=== PATIENT | male | born 1985 | race Caucasian/White ===

== ENCOUNTER 2019-07-12 19:58 | Emergency (ER) | payer SELFPAY ==
[2019-07-12 20:06] VITALS: BMI 28.2
--- NOTE | 2019-07-12 20:31 | PDOC ---
History of Present Illness - General Chief Complaint: Pain Stated Complaint: ABDOMINAL PAIN Time Seen by Provider: 07/12/19 20:31 Past History - Past Medical History Allergies/Adverse Reactions: Allergies Allergy/AdvReac Type Severity Reaction Status Date / Time No Known Allergies Allergy Verified 07/14/19 16:53 Home Medications: Ambulatory Orders Acetaminophen [Tylenol -] 500 mg PO Q4H #100 tablet 07/13/19 Ibuprofen [Motrin -] 600 mg PO TID #21 tablet 07/13/19 - Psycho Social/Smoking Cessation Hx Smoking History: Never smoked Hx Alcohol Use: Yes (social) Drug/Substance Use Hx: No *Physical Exam - Vital Signs Last Vital Signs Temp Pulse Resp BP Pulse Ox 99 F 93 H 18 127/85 100 07/12/19 20:04 07/12/19 20:04 07/12/19 20:04 07/12/19 20:04 07/12/19 20:04 ED Treatment Course - LABORATORY CBC & Chemistry Diagram: 07/12/19 21:35 07/12/19 21:35 Medical Decision Making - Medical Decision Making HPI: 34yo M with PMH of HLD, gastritis, and h. pylori presenting with epigastric abdominal pain x 1 week. Patient states the pain feels "like a ball" and is rated 9/10. He has had nausea, bilious vomiting, and has not been able to tolerate po. Had about five episodes of diarrhea today without Has never had surgery. Denies urinary symptoms. Was evaluated on Monday at [facility] for similar issue, was given ranitidine which has not provided relief of his pain. Was referred to GI and has an appointment on Monday. Has had an endoscopy more than a year ago which showed gastritis. Denies tobacco smoking, alcohol drinking , or recreational drug use. Denies recent travel or sick contacts. No fevers or chills. PCP: none GI: none ROS: Constitutional: no fever, no chills HEENT: no throat pain, no dysphagia Cardiovascular: no chest pain, no palpitations Respiratory: no cough, no shortness of breath Gastrointestinal: +abdominal pain, +vomiting Genitourinary: no dysuria, no hematuria Musculoskeletal: no myalgia, no arthralgia Skin: no rash, no itching Neurologic: no headache, no weakness PE: General: Awake, alert, and fully oriented, in no acute distress Head: No signs of trauma Eyes: EOMI, sclera anicteric ENT: Moist mucus membranes Neck: Normal ROM, supple Lungs: Lungs clear, Normal breath sounds Cardio: Regular rhythm, S1 and S2 present Abdomen: Tender to palpation in epigastrium. Soft, nondistended. No guarding, no rebound, no masses. No CVA tenderness. Extremities: Normal range of motion, Distal pulses present SKIN: Warm, Dry, normal turgor Neurologic: Cranial nerves II through XII grossly intact. Normal speech ED Course/MDM: DDX including but not limited to pancreatitis, gastritis, GERD, h. pylori, gastric ulcer, nephrolithiasis Labs, EKG, CXR 07/12/19 20:31 Patient states he feels better after receiving medications, now 01/23. No longer nauseous CBC WBC 4.5 K/mm3 (4.0-10.0) 07/12/19 21:35 RBC 5.27 M/mm3 (4.00-5.60) 07/12/19 21:35 Hgb 15.1 GM/dL (11.7-16.9) 07/12/19 21:35 Hct 45.1 % (35.4-49) 07/12/19 21:35 MCV 85.7 fl (80-96) 07/12/19 21:35 MCH 28.7 pg (25.7-33.7) 07/12/19 21:35 MCHC 33.4 g/dl (32.0-35.9) 07/12/19 21:35 RDW 13.9 % (11.9-15.9) 07/12/19 21:35 Plt Count 261 K/MM3 (134-434) 07/12/19 21:35 MPV 8.0 fl (7.5-11.1) 07/12/19 21:35 Absolute Neuts (auto) 2.1 K/mm3 (1.5-8.0) 07/12/19 21:35 Neutrophils % 47.3 % (42.8-82.8) 07/12/19 21:35 Neutrophils % (Manual) 30.3 % (42.8-82.8) L 07/12/19 21:35 Band Neutrophils % 8.1 % 07/12/19 21:35 Lymphocytes % 26.6 % (8-40) 07/12/19 21:35 Lymphocytes % (Manual) 29.3 % (8-40) 07/12/19 21:35 Monocytes % 24.2 % (3.8-10.2) H 07/12/19 21:35 Monocytes % (Manual) 17 % (3.8-10.2) H 07/12/19 21:35 Eosinophils % 1.6 % (0-4.5) 07/12/19 21:35 Eosinophils % (Manual) 10.1 % (0-4.5) H 07/12/19 21:35 Basophils % 0.3 % (0-2.0) 07/12/19 21:35 Basophils % (Manual) 0.0 % (0-2.0) 07/12/19 21:35 Myelocytes % (Man) 0 % (0-2) 07/12/19 21:35 Promyelocytes % (Man) 0 % (0-2) 07/12/19 21:35 Blast Cells % (Manual) 0 % (0-0) 07/12/19 21:35 Nucleated RBC % 0 % (0-0) 07/12/19 21:35 Metamyelocytes 0 % (0-2) 07/12/19 21:35 Hypochromia 0 07/12/19 21:35 Platelet Estimate Normal 07/12/19 21:35 Polychromasia 0 07/12/19 21:35 Poikilocytosis 0 07/12/19 21:35 Anisocytosis 0 07/12/19 21:35 Microcytosis 0 07/12/19 21:35 Macrocytosis 0 07/12/19 21:35 No leukocytosis CMP Sodium 139 mmol/L (136-145) 07/12/19 21:35 Potassium 4.2 mmol/L (3.5-5.1) 07/12/19 21:35 Chloride 103 mmol/L (98-107) 07/12/19 21:35 Carbon Dioxide 30 mmol/L (21-32) 07/12/19 21:35 Anion Gap 5 MMOL/L (8-16) L 07/12/19 21:35 BUN 12.1 mg/dL (7-18) 07/12/19 21:35 Creatinine 1.1 mg/dL (0.55-1.3) 07/12/19 21:35 Est GFR (CKD-EPI)AfAm 102.40 07/12/19 21:35 Est GFR (CKD-EPI)NonAf 88.36 07/12/19 21:35 Random Glucose 92 mg/dL (74-106) 07/12/19 21:35 Calcium 8.8 mg/dL (8.5-10.1) 07/12/19 21:35 Total Bilirubin 1.0 mg/dL (0.2-1) 07/12/19 21:35 AST 16 U/L (15-37) 07/12/19 21:35 ALT 15 U/L (13-61) 07/12/19 21:35 Alkaline Phosphatase 77 U/L (45-117) 07/12/19 21:35 Total Protein 6.6 g/dl (6.4-8.2) 07/12/19 21:35 Albumin 3.6 g/dl (3.4-5.0) 07/12/19 21:35 Lipase 91 U/L (73-393) 07/12/19 21:35 Electrolytes unremarkable Lipase normal US unremarkable, as ready by radiology: "Right upper abdomen ultrasound. The liver measures 14.9 cm in sagittal length with a homogeneous echotexture. Gallbladder is adequately distended without intraluminal stones or thickening of its wall. No intra or extrahepatic bile duct dilatation is seen. The right kidney measures 10.3 cm sagittal length and appears unremarkable. Nonvisualization of the pancreas likely due to overlying bowel gas. Visualized portion of the proximal abdominal aorta and inferior vena cava appear unremarkable. Normal flow in the main portal vein. IMPRESSION: Nonvisualization of the pancreas likely due to overlying bowel gas. The rest of the examination appears unremarkable. No gallstones are identified. " Trouble sending CTAP to [facility], it is now sent over 07/13/19 03:08 Patient stating his pain has returned, now 05/25 We will give levsin and morphine Pending CTAP Pending po challenge 07/13/19 03:30 Patient signed out to Dr. Haddad and night team 07/13/19 03:42 Discharge - Discharge Information Problems reviewed: Yes Clinical Impression/Diagnosis: Abdominal pain Qualifiers: Abdominal location: epigastric Qualified Code(s): R10.13 - Epigastric pain Condition: Improved Disposition: HOME - Additional Discharge Information Prescriptions: Acetaminophen [Tylenol -] 500 mg PO Q4H #100 tablet Ibuprofen [Motrin -] 600 mg PO TID #21 tablet - Follow up/Referral Referrals: [facility] [place] [facility] at [place] [Provider Group] Pedro Ty MD [Staff Physician] - - Patient Discharge Instructions Patient Printed Discharge Instructions: DI for Abdominal Pain-Adult Additional Instructions: You came into the emergency department for abdominal pain. Labs did not indicate acute pathology. CT scan indicates fi ndings concerning for Crohn's Disease however diagnosis requires colonoscopy. Please follow up with your GI doctor. Make sure you drink plenty of water to keep well hydrated. You can take [id number] tylenol as needed for pain. Follow the instructions on the medication bottle. Follow-up with a primary care provider or your GI doctor within 72 hours to discuss this ED visit and to further evaluate your symptoms. Your workup is not complete until you do so. You have been referred to the [facility] in case you do not have a primary care doctor. Call and make an appointment at the number provided. Immediate medical attention is required if you have: you develop worsening pain , high fevers, persistent nausea, vomiting, or any new or concerning symptoms. If you think you are having an emergency, call for emergency medical services or present to the emergency department right away. - Post Discharge Activity
[2019-07-12] MEDS ORDERED: SODIUM CHLORIDE 1,000 ML IV STA (20:58)
[2019-07-12] MEDS ORDERED: FAMOTIDINE 20 MG/50 ML IVPB 20 MG/50 ML MG IVPB ONE ×2 (20:58→21:47)
[2019-07-12] MEDS ORDERED: ONDANSETRON 4 MG/2 ML VIAL IVPUSH ONE (20:58)
[2019-07-12] MEDS ORDERED: ACETAMINOPHEN 1000 MG/100 ML VIAL (NON FORMULARY) IVPB ONE (20:58)
[2019-07-12] MEDS ORDERED: ONDANSETRON 4 MG/2 ML VIAL ONE (21:46)
[2019-07-12] MEDS ORDERED: ACETAMINOPHEN INJECTION 100 ML IVPB ONE (21:46)
[2019-07-12 21:49] LABS: BASO % 0.3 % (0-2.0); EOS % 1.6 % (0-4.5); HEMATOCRIT 45.1 % (35.4-49); HEMOGLOBIN 15.1 GM/dL (11.7-16.9); LYMPH % 26.6 % (8-40); MCH 28.7 pg (25.7-33.7); MCHC 33.4 g/dl (32.0-35.9); MEAN CELL VOLUME 85.7 fl (80-96); MONO % 24.2 % (3.8-10.2); NEUT % 47.3 % (42.8-82.8); PLATELET COUNT 261 K/MM3 (134-434); RBC 5.27 M/mm3 (4.00-5.60); RDW 13.9 % (11.9-15.9); WHITE BLOOD COUNT 4.5 K/mm3 (4.0-10.0)
[2019-07-12 22:19] LABS: ALBUMIN 3.6 g/dl (3.4-5.0); BLOOD UREA NITROGEN 12.1 mg/dL (7-18); CALCIUM 8.8 mg/dL (8.5-10.1); CREATININE 1.1 mg/dL (0.55-1.3); POTASSIUM 4.2 mmol/L (3.5-5.1); TOT PROT 6.6 g/dl (6.4-8.2)
[2019-07-12 22:57] LABS: ANISOCYTOSIS 0; MACROCYTOSIS 0; PLATELET ESTIMATE NORMAL
--- NOTE | 2019-07-13 | PDOC ---
Attending Attestation - Resident Resident Name: Bibiana Anglin - ED Attending Attestation I have performed the following: I have examined & evaluated the patient, The case was reviewed & discussed with the resident, I agree w/resident's findings & plan, Exceptions are as noted - HPI HPI: 07/12/19 23:54 Mr. Patel is a 34 yo M who presents to the ER with a complaint of abdominal pain, vomiting (non bloody, non bilious) and diarrhea (non bloody, non mucoid) Pt has had symptoms for the past week He was seen at an outside hospital where pt reports that nothing happened He has abdominal pain, located in the epigastric region, unable to describe it, no radiation The patient states that he continues to be unable to tolerate po He vomits each time he tries to eat He has also noted diarrhea Pt feels feverish but has not had a fever recently travelled to [place] where he was at a BB No one else is ill No undercooked meat or uncooked shellfish - Physicial Exam PE: 07/12/19 23:59 GENERAL: The patient is in no acute distress. ENT: Ears normal, nares patent, oropharynx clear without exudates. Dry mucous membranes. NECK: Normal range of motion, supple LUNGS: Breath sounds equal, clear to auscultation bilaterally. No wheezes, and no crackles. HEART:Regular rate and rhythm, normal S1 and S2 without murmur, rub or gallop. ABDOMEN: Soft, protruberant, epigastric tenderness to palpation EXTREMITIES: Normal range of motion, no edema. NEUROLOGICAL: Cranial nerves II through XII grossly intact. Normal speech. No focal neurological deficits. SKIN: Warm, Dry, normal turgor, no rashes or lesions noted. - Medical Decision Making 07/13/19 00:00 34 yo M presenting with epigastric pain, nausea and vomiting DD: abdominal pain, gastroenteritis, biliary colic, colitis, gastritis Laboratory Tests 07/12/19 07/12/19 21:35 21:35 WBC 4.5 Hgb 15.1 Hct 45.1 Plt Count 261 BUN 12.1 Creatinine 1.[address] pending US pending U/S unrevealing CT pending Signed out to Dr. Molina
[2019-07-13 01:14] VITALS: BP 110/68; PULSE 70; TEMP 98.8
[2019-07-13] MEDS ORDERED: HYOSCYAMINE SULFATE 0.125 MG *ODT PO ONE (03:28)
[2019-07-13] MEDS ORDERED: morphine CARPU-JECT 2 MG/1 ML DISP.SYRIN IVPUSH ONE (03:29)
[2019-07-13] MEDS ORDERED: SUCRALFATE 1 GM/10 ML UNIT DOSE CUPS PO ONE (03:41)
--- NOTE | 2019-07-13 04:05 | PDOC ---
*Physical Exam - Vital Signs Last Vital Signs Temp Pulse Resp BP Pulse Ox 98.8 F 70 18 110/68 99 07/13/19 01:12 07/13/19 01:12 07/13/19 01:12 07/13/19 01:12 07/13/19 01:12 ED Treatment Course - LABORATORY CBC & Chemistry Diagram: 07/12/19 21:35 07/12/19 21:35 - ADDITIONAL ORDERS Additional order review: Laboratory Results 07/12/19 21:35 Sodium 139 Potassium 4.2 Chloride 103 Carbon Dioxide 30 Anion Gap 5 L BUN 12.1 Creatinine 1.1 Est GFR (CKD-EPI)AfAm 102.40 Est GFR (CKD-EPI)NonAf 88.36 Random Glucose 92 Calcium 8.8 Total Bilirubin 1.0 AST 16 ALT 15 Alkaline Phosphatase 77 Total Protein 6.6 Albumin 3.6 Lipase 91 07/12/19 21:35 RBC 5.27 MCV 85.7 MCHC 33.4 RDW 13.9 MPV 8.0 Neutrophils % 47.3 Lymphocytes % 26.6 Monocytes % 24.2 H Eosinophils % 1.6 Basophils % 0.3 - Medications Given in the ED: ED Medications Discontinued Medications Generic Name Dose Route Start Last Admin Trade Name Missy PRN Reason Stop Dose Admin Acetaminophen 1,000 mg 07/12/19 20:58 07/12/19 22:10 Ofirmev Injection - IVPB 07/12/19 20:59 1,000 mg ONCE ONE Administration Famotidine/Sodium Chloride 20 mg in 50 mls @ 100 mls/hr 07/12/19 20:58 22:11 Pepcid 20 Mg Premixed Ivpb - IVPB 07/12/19 21:27 100 mls/hr ONCE ONE Administration Sodium Chloride 1,000 mls @ 1,000 mls/hr 07/12/19 20:58 07/12/19 22:08 Normal Saline - IV 07/12/19 21:57 1,000 mls/hr ASDIR STA Administration Ondansetron HCl 4 mg 07/12/19 20:58 07/12/19 22:11 Zofran Injection IVPUSH 07/12/19 20:59 4 mg ONCE ONE Administration Medical Decision Making - Medical Decision Making 07/13/19 04:05 Pt was sgned out to me; Patient Name: AYLEEN ACHARYA THIS IS A PRELIMINARY REPORT FROM [facility] DATE OF SERVICE: 2019-07-13 01:06:29 IMAGES: [id number] EXAM: ABDOMEN \T\ PELVIS CT WITH CONTR HISTORY: Epigastric pain, nausea, and vomiting COMPARISON: None. FINDINGS: No gallstones Bowel wall thickening involving the terminal ileum, cecum, ascending colon and rectum that is suspicious for Crohn's disease. Clinical correlation is advised. The appendix is within the upper limits of normal without adjacent inflammatory changes to suggest acute appendicitis 1.5 cm well-circumscribed low-attenuation lesion within the left lobe of the liver that does not meet criteria for a simple cyst. Sonographic correlation will be of value in order to better characterize this finding No evidence of intestinal obstruction, perforation, or free fluid 07/13/19 04:05 Pt will be discharged home with GI follow up. 07/13/19 04:24 Pt wants to go home. He was seen at [facility] and has an appointment for MondayJul 15 for GI appt at the clinic with Dr. Luke. Pt will be given a referral for this hospital also in case he wants a second opinion. Pt has normal labs and inflamed intestines consistent with crohn's. Pt never has seen blood in his stools, and his Hb/HCT are stable. 07/13/19 07:02 Discharge - Discharge Information Problems reviewed: Yes Clinical Impression/Diagnosis: Abdominal pain Qualifiers: Abdominal location: epigastric Qualified Code(s): R10.13 - Epigastric pain Condition: Improved Disposition: HOME - Additional Discharge Information Prescriptions: Acetaminophen [Tylenol -] 500 mg PO Q4H #100 tablet Ibuprofen [Motrin -] 600 mg PO TID #21 tablet - Follow up/Referral Referrals: [facility] [place] [Provider Group] Pedro Ty MD [Staff Physician] - - Patient Discharge Instructions Patient Printed Discharge Instructions: DI for Abdominal Pain-Adult Additional Instructions: You came into the emergency department for abdominal pain. Labs did not indicate acute pathology. CT scan indicates fi ndings concerning for Crohn's Disease however diagnosis requires colonoscopy. Please follow up with your GI doctor. Make sure you drink plenty of water to keep well hydrated. You can take [id number] tylenol as needed for pain. Follow the instructions on the medication bottle. Follow-up with a primary care provider or your GI doctor within 72 hours to discuss this ED visit and to further evaluate your symptoms. Your workup is not complete until you do so. You have been referred to the [facility] in case you do not have a primary care doctor. Call and make an appointment at the number provided. Immediate medical attention is required if you have: you develop worsening pain , high fevers, persistent nausea, vomiting, or any new or concerning symptoms. If you think you are having an emergency, call for emergency medical services or present to the emergency department right away. - Post Discharge Activity
--- NOTE | 2019-07-13 04:14 | PDOC ---
*Physical Exam - Vital Signs Last Vital Signs Temp Pulse Resp BP Pulse Ox 98.8 F 70 18 110/68 99 07/13/19 01:12 07/13/19 01:12 07/13/19 01:12 07/13/19 01:12 07/13/19 01:12 ED Treatment Course - LABORATORY CBC & Chemistry Diagram: 07/12/19 21:35 07/12/19 21:35 - ADDITIONAL ORDERS Additional order review: Laboratory Results 07/12/19 21:35 Sodium 139 Potassium 4.2 Chloride 103 Carbon Dioxide 30 Anion Gap 5 L BUN 12.1 Creatinine 1.1 Est GFR (CKD-EPI)AfAm 102.40 Est GFR (CKD-EPI)NonAf 88.36 Random Glucose 92 Calcium 8.8 Total Bilirubin 1.0 AST 16 ALT 15 Alkaline Phosphatase 77 Total Protein 6.6 Albumin 3.6 Lipase 91 07/12/19 21:35 RBC 5.27 MCV 85.7 MCHC 33.4 RDW 13.9 MPV 8.0 Neutrophils % 47.3 Lymphocytes % 26.6 Monocytes % 24.2 H Eosinophils % 1.6 Basophils % 0.3 - Medications Given in the ED: ED Medications Discontinued Medications Generic Name Dose Route Start Last Admin Trade Name Freq PRN Reason Stop Dose Admin Acetaminophen 1,000 mg 07/12/19 20:58 07/12/19 22:10 Ofirmev Injection - IVPB 07/12/19 20:59 1,000 mg ONCE ONE Administration Famotidine/Sodium Chloride 20 mg in 50 mls @ 100 mls/hr 07/12/19 20:58 22:11 Pepcid 20 Mg Premixed Ivpb - IVPB 07/12/19 21:27 100 mls/hr ONCE ONE Administration Sodium Chloride 1,000 mls @ 1,000 mls/hr 07/12/19 20:58 07/12/19 22:08 Normal Saline - IV 07/12/19 21:57 1,000 mls/hr ASDIR STA Administration Ondansetron HCl 4 mg 07/12/19 20:58 07/12/19 22:11 Zofran Injection IVPUSH 07/12/19 20:59 4 mg ONCE ONE Administration Medical Decision Making - Medical Decision Making 07/13/19 04:[address] Anglin 34yo M with PMH of HLD, gastritis, and h. pylori presenting with epigastric abdominal pain x 1 week. Labs wnl. US unremarkable. -CT: Bowel wall thickening involving the terminal ileum, cecum, ascending colon and rectum that is suspicious for Crohn's disease. Clinical correlation is advised. pending pain meds due to pain returning. otherwise safe for dc home. given return precautions. has gi appointment on monday. Given copies of CT report. Discharge - Discharge Information Problems reviewed: Yes Clinical Impression/Diagnosis: Abdominal pain Qualifiers: Abdominal location: epigastric Qualified Code(s): R10.13 - Epigastric pain Condition: Improved Disposition: HOME - Additional Discharge Information Prescriptions: Acetaminophen [Tylenol -] 500 mg PO Q4H #100 tablet Ibuprofen [Motrin -] 600 mg PO TID #21 tablet - Follow up/Referral Referrals: [facility] [place] Internal [facility] at [place] [Provider Group] Pedro Ty MD [Staff Physician] - - Patient Discharge Instructions Patient Printed Discharge Instructions: DI for Abdominal Pain-Adult Additional Instructions: You came into the emergency department for abdominal pain. Labs did not indicate acute pathology. CT scan indicates fi ndings concerning for Crohn's Disease however diagnosis requires colonoscopy. Please follow up with your GI doctor. Make sure you drink plenty of water to keep well hydrated. You can take [id number] tylenol as needed for pain. Follow the instructions on the medication bottle. Follow-up with a primary care provider or your GI doctor within 72 hours to discuss this ED visit and to further evaluate your symptoms. Your workup is not complete until you do so. You have been referred to the [facility] in case you do not have a primary care doctor. Call and make an appointment at the number provided. Immediate medical attention is required if you have: you develop worsening pain , high fevers, persistent nausea, vomiting, or any new or concerning symptoms. If you think you are having an emergency, call for emergency medical services or present to the emergency department right away. - Post Discharge Activity
[2019-07-13] MEDS ORDERED: ACETAMINOPHEN 1000 MG/100 ML VIAL (NON FORMULARY) IVPB ONE (04:22)
[2019-07-13] MEDS ORDERED: ACETAMINOPHEN INJECTION 100 ML IVPB ONE (04:28)
== END 2019-07-13 05:20 | disposition home or self-care (01) ==
LOC: JER 19:58
PROC: 3E033NZ Introduction of Analgesics, Hypnotics, Sedatives into Peripheral Vein, Percutaneous Approach (ICD-10-PCS; principal; 2019-07-12)
PROC: 3E033GC Introduction of Other Therapeutic Substance into Peripheral Vein, Percutaneous Approach (ICD-10-PCS; 2019-07-12)
PROC: 3E0337Z Introduction of Electrolytic and Water Balance Substance into Peripheral Vein, Percutaneous Approach (ICD-10-PCS; 2019-07-12)
DX: R10.13 Epigastric pain (principal)
CPT/HCPCS: 36415; 74177-TC; 76705-TC; 80053; 83690; 85025; 99283-25; J0131; J7030

== ENCOUNTER 2019-07-14 16:48 | Emergency (ER) | payer SELFPAY ==
[2019-07-14 16:53] VITALS: BP 129/79; PULSE 83; TEMP 98; BMI 28.2
--- NOTE | 2019-07-14 17:44 | PDOC ---
History of Present Illness - General Chief Complaint: Pain Stated Complaint: REVISIT History Source: Patient Exam Limitations: No Limitations - History of Present Illness Initial Comments: 07/14/19 17:30 Patient is a 34 year old male with h/o gastritis, HLD had taken meds in the past c/o epigastric pain, nausea, vomiting and diarrhea x 1 week assoc/w persistent burping and gassy. Patient states the pain sharp burning 06/25, continuous. Was seen the ED in [facility] 5 days ago was treated and released not meds for the pain but was given appointment for GI which is scheduled for 07/15/19. He again came to this ED for evaluation on 3 days ago was also treated CT done which showed bowel wall throughout suspicious for Crohn 's. Patient states has been taking tylenol for the pain with minimal relief but today but not tolerating, has been vomiting. States has diarrhea every time he eats. Denies fever, chills, dysuria. PMHX: as above PSOCHX: neg ALL: NKDA GENERAL/CONSTITUTIONAL: No fever or chills. No weakness. No weight change. HEAD, EYES, EARS, NOSE AND THROAT: No change in vision. No ear pain or discharge. No sore throat. CARDIOVASCULAR: No chest pain or shortness of breath. RESPIRATORY: No cough, wheezing, or hemoptysis. GASTROINTESTINAL: (+) nausea, vomiting, diarrhea (-) constipation. No rectal bleeding. GENITOURINARY: No dysuria, frequency, or change in urination. MUSCULOSKELETAL: No joint or muscle swelling or pain. No neck or back pain. SKIN AND BREASTS: No rash or easy bruising. NEUROLOGIC: No headache, vertigo, loss of consciousness, or loss of sensation. PSYCHIATRIC: No depression or anxiety. ENDOCRINE: No increased thirst. No abnormal weight change. HEMATOLOGIC/LYMPHATIC: No anemia, easy bleeding, or history of blood clots. ALLERGIC/IMMUNOLOGIC: No hives or skin allergy. No latex allergy. GENERAL: The patient is awake, alert, and fully oriented, in mild distress rubbing his epigastric area HEAD: Normal with no signs of trauma. EYES: Pupils equal, round and reactive to light, extraocular movements intact, sclera anicteric, conjunctiva clear. ENT: Ears normal, nares patent, oropharynx clear without exudates. Moist mucous membranes. NECK: Normal range of motion, supple without lymphadenopathy, JVD, or masses. LUNGS: Breath sounds equal, clear to auscultation bilaterally. No wheezes, and no crackles. HEART: Regular rate and rhythm, normal S1 and S2 without murmur, rub. ABDOMEN: Soft, epigastric tender, normoactive bowel sounds. No guarding, no rebound. No masses. EXTREMITIES: Normal range of motion, no edema. No clubbing or cyanosis. No cords, erythema, or tenderness. NEUROLOGICAL: Cranial nerves II through XII grossly intact. Normal speech, normal gait. PSYCH: Normal mood, normal affect. SKIN: Warm, Dry, normal turgor, no rashes or lesions noted. Past History - Past Medical History Allergies/Adverse Reactions: Allergies Allergy/AdvReac Type Severity Reaction Status Date / Time No Known Allergies Allergy Verified 07/14/19 16:53 Home Medications: Ambulatory Orders Acetaminophen [Tylenol -] 500 mg PO Q4H #100 tablet 07/13/19 Ibuprofen [Motrin -] 600 mg PO TID #21 tablet 07/13/19 COPD: No GI Disorders: Yes (gastritis) Hypercholesterolemia: Yes - Psycho Social/Smoking Cessation Hx Smoking History: Never smoked Hx Alcohol Use: Yes (social) Drug/Substance Use Hx: No *Physical Exam - Vital Signs Last Vital Signs Temp Pulse Resp BP Pulse Ox 98.0 F 83 18 129/79 100 07/14/19 16:51 07/14/19 16:51 07/14/19 16:51 07/14/19 16:51 07/14/19 16:51 Medical Decision Making - Medical Decision Making 07/14/19 17:30 Patient is a 34 year old male with h/o gastritis, HLD had taken meds in the past c/o epigastric pain, nausea, vomiting and diarrhea x 1 week. Patient states the pain sharp burning 06/25, continuous . Was seen the ED in [facility] 5 days ago was treated and released not meds for the pain but was given appointment for GI which is scheduled for 07/15/19. He again came to this ED for evaluation on 3 days ago was also treated CT done which showed bowel wall throughout suspicious for Crohn's. Patient states has been taking tylenol for the pain with minimal relief but today but not tolerating, has been vomiting. States has diarrhea every time he eats. Denies fever, chills, dysuria. Symptoms consistent with gastritis/gastroenteritis. labs, IVF, pepcid, reglan, toradol, will not repeat labs today unless has persistent symptoms and need admission reassess Patient states no relief from meds will give Tylenol 1 g IV 07/14/19 20:15 Chin states feel improved however will give him a GI cocktail, carafate and then discharge, I discussed the physical exam findings, ancillary test results and final diagnoses with the patient. I answered all of the patient's questions. The patient was satisfied with the care received and felt comfortable with the discharge plan and treatment plan. The Patient agrees to follow up with the primary care physician within 24-72 hours. Discharge - Discharge Information Problems reviewed: Yes Clinical Impression/Diagnosis: Abdominal pain Qualifiers: Abdominal location: epigastric Qualified Code(s): R10.13 - Epigastric pain Condition: Stable Disposition: HOME - Follow up/Referral - Patient Discharge Instructions Additional Instructions: Your Discharge Instructions: You must call primary care physician within 24 hours to arrange follow-up. Return to the Emergency Department with any new, persistent or worsening symptoms, for fever, chills, SOB, dizziness or any other concerning changes that may occur. You must keep her gastroenterology follow-up tomorrow. - Post Discharge Activity
[2019-07-14] MEDS ORDERED: FAMOTIDINE 20 MG/50 ML IVPB 20 MG/50 ML MG IVPB ONE (17:52)
[2019-07-14] MEDS ORDERED: SODIUM CHLORIDE 0.9% 500 ML INFUS.BAG IV ONE (17:52)
[2019-07-14] MEDS ORDERED: METOCLOPRAMIDE HCL INJECTION 10 MG/2 ML VIAL IVPUSH ONE (17:52)
[2019-07-14] MEDS ORDERED: KETOROLAC TROMETHAMINE 30 MG/1 ML VIAL IVPUSH ONE (18:00)
[2019-07-14] MEDS ORDERED: ONDANSETRON 4 MG/2 ML VIAL IVPUSH ONE (18:33)
[2019-07-14] MEDS ORDERED: ACETAMINOPHEN 1000 MG/100 ML VIAL (NON FORMULARY) IVPB ONE (18:33)
[2019-07-14] MEDS ORDERED: ONDANSETRON 4 MG/2 ML VIAL ONE (19:02)
[2019-07-14] MEDS ORDERED: MAG HYDROX/AL HYDROX/SIMETH -MYLANTA- ORAL SUSPENSION PO ONE (20:13)
[2019-07-14] MEDS ORDERED: LIDOCAINE VISCOUS 2% ORAL/TOP 20 ML UNIT-DOSE CUP MM ONE (20:13)
[2019-07-14] MEDS ORDERED: SUCRALFATE 1 GM/10 ML UNIT DOSE CUPS PO ONE (20:14)
[2019-07-14] MEDS ORDERED: SUCRALFATE 1 GM TABLET (FP) ONE (20:42)
[2019-07-14] MEDS ORDERED: LIDOCAINE VISCOUS 2% ORAL/TOP 20 ML UNIT-DOSE CUP ONE (20:42)
[2019-07-14] MEDS ORDERED: MAG HYDROX/AL HYDROX/SIMETH 30 ML UNIT-DOSE CUP ONE (20:43)
== END 2019-07-14 21:01 | disposition home or self-care (01) ==
LOC: JER 16:48
PROC: 3E033GC Introduction of Other Therapeutic Substance into Peripheral Vein, Percutaneous Approach (ICD-10-PCS; principal; 2019-07-14)
PROC: 3E033GC Introduction of Other Therapeutic Substance into Peripheral Vein, Percutaneous Approach (ICD-10-PCS; 2019-07-14)
PROC: 3E033NZ Introduction of Analgesics, Hypnotics, Sedatives into Peripheral Vein, Percutaneous Approach (ICD-10-PCS; 2019-07-14)
PROC: 3E0333Z Introduction of Anti-inflammatory into Peripheral Vein, Percutaneous Approach (ICD-10-PCS; 2019-07-14)
PROC: 3E033GC Introduction of Other Therapeutic Substance into Peripheral Vein, Percutaneous Approach (ICD-10-PCS; 2019-07-14)
DX: R10.13 Epigastric pain (principal)
CPT/HCPCS: 99282-25; J0131

== ENCOUNTER 2024-06-24 10:24 | Emergency (ER) | payer OTHER ==
[2024-06-24 10:36] VITALS: BP 125/93; PULSE 83; RESP 16; TEMP 99.3; BMI 29.0
[2024-06-24] MEDS ORDERED: ACETAMINOPHEN INJECTION 100 ML ONE (11:46)
[2024-06-24] MEDS ORDERED: ONDANSETRON 4 MG/2 ML VIAL ONE (11:47)
[2024-06-24] MEDS ORDERED: MAG HYDROX/AL HYDROX/SIMETH 30 ML UNIT-DOSE CUP ONE (11:47)
[2024-06-24] MEDS ORDERED: FAMOTIDINE 20 MG/50 ML IVPB 20 MG/50 ML MG IVPB ONE (11:47)
[2024-06-24 12:59] LABS: BASO % 0.4 % (0-2.0); EOS % 1.3 % (0-4.5); HEMATOCRIT 53.9 % (35.4-49); HEMOGLOBIN 18.1 GM/dL (11.7-16.9); LYMPH % 27.9 % (8-40); MCH 28.8 pg (25.7-33.7); MCHC 33.6 g/dl (32.0-35.9); MEAN CELL VOLUME 85.7 fl (80-96); MEAN PLT VOLUME 7.1 fl (7.5-11.1); MONO % 18.6 % (3.8-10.2); NEUT % 51.8 % (42.8-82.8); PLATELET COUNT 252 10^3/uL (134-434); RBC 6.28 M/mm3 (4.00-5.60); RDW 14.1 % (11.9-15.9); WHITE BLOOD COUNT 4.6 K/mm3 (4.0-10.0)
[2024-06-24] MEDS: MAG HYDROX/AL HYDROX/SIMETH -MYLANTA- ORAL SUSPENSION PO ONE (12:59)
[2024-06-24] MEDS: SODIUM CHLORIDE 0.9% 500 ML INFUS.BAG IV ONE (12:59)
[2024-06-24] MEDS: ACETAMINOPHEN 1000 MG/100 ML BAG IVPB ONE (13:00)
[2024-06-24] MEDS: ONDANSETRON 4 MG/2 ML VIAL IVPUSH ONE (13:00)
[2024-06-24] MEDS: FAMOTIDINE 20 MG/50 ML IVPB 20 MG/50 ML MG IVPB ONE (13:00)
[2024-06-24 13:30] LABS: POTASSIUM 4.2 mmol/L (3.5-5.1)
[2024-06-24 13:33] LABS: ALBUMIN 4.2 g/dl (3.4-5.0); BLOOD UREA NITROGEN 12.3 mg/dL (7-18); MAGNESIUM 2.4 mg/dL (1.8-2.4)
[2024-06-24 13:36] LABS: CREATININE 1.3 mg/dL (0.55-1.3)
[2024-06-24 13:38] LABS: BILIRUBIN,TOTAL 1.3 mg/dL (0.2-1); TOT PROT 8.4 g/dl (6.4-8.2)
[2024-06-24 14:19] LABS: HIV INTERPRETATION NEGATIVE (NEGATIVE)
== END 2024-06-24 14:00 | disposition home or self-care (01) ==
LOC: JER 10:24
PROC: 3E033GC Introduction of Other Therapeutic Substance into Peripheral Vein, Percutaneous Approach (ICD-10-PCS; principal; 2024-06-24)
PROC: 3E033NZ Introduction of Analgesics, Hypnotics, Sedatives into Peripheral Vein, Percutaneous Approach (ICD-10-PCS; 2024-06-24)
PROC: 3E033GC Introduction of Other Therapeutic Substance into Peripheral Vein, Percutaneous Approach (ICD-10-PCS; 2024-06-24)
DX: K52.9 Noninfective gastroenteritis and colitis, unspecified (principal); R11.2 Nausea with vomiting, unspecified; R10.13 Epigastric pain
CPT/HCPCS: 36415; 76705-TC; 80053; 83690; 83735; 85025; 86803; 87389; 96365; 96375; 99284-25; J0131